=== PATIENT | female | born 1995 ===

== ENCOUNTER 2024-06-15 04:27 | Outpatient (CLI) | payer MEDICAID, SELFPAY ==
[2024-06-15 16:13] LABS: Abs Immature Grans 0.02 10^3/uL (0.0-0.06); Absolute Basophil Count 0.05 10^3/uL (0.0-0.2); Absolute Eosinophil Count 0.12 10^3/uL (0.0-0.7); Absolute Lymphocyte Count 1.36 10^3/uL (1.2-3.4); Absolute Neutrophil Count 5.65 10^3/uL (1.2-6.7); Basophils % 0.7 %; Eosinophils % 1.6 %; HCT 40.2 % (36.0-46.0); HGB 13.5 g/dL (11.2-15.7); Immature Grans % 0.3 %; Lymphocytes % 17.9 %; MCH 29.3 pg (27.0-33.0); MCHC 33.6 % (32.0-36.0); MCV 87 fL (80-95); MPV 9.2 fL (8.0-11.0); Monocytes % 5.3 %; Neutrophils % 74.2 %; Platelet Count 300 10^3/uL (130-400); RBC 4.61 10^6/uL (3.93-5.22); RDW 13.2 % (11.7-14.6); RDW-SD 41.8 fL
[2024-06-15 16:17] LABS: Bilirubin Negative (Negative); Blood Large (Negative); Clarity Clear (Clear); Glucose Negative (Negative); Ketones Negative (Negative); Leukocyte Esterase Negative (Negative); Nitrite Negative (Negative); Urobilinogen 0.2 mg/dL (Up to 0.2); pH 8.5 (5-8)
[2024-06-15 16:23] LABS: Bacteria Negative HPF (Negative); C & S Indicated? No; Casts Negative LPF (Negative); Crystals Negative HPF (Negative); Epithelial Cells Few HPF (Negative); Mucus Negative (Negative); WBC Negative HPF (0-5)
[2024-06-15 16:37] LABS: Hemoglobin A1C 5.4 % (<5.7)
[2024-06-15 16:52] LABS: Iron 93 ug/dL (50-170)
[2024-06-15 17:21] LABS: ALT 18 U/L (14-59); AST 16 U/L (15-37); Albumin 4.1 g/dL (3.4-5.0); Alkaline Phosphatase 67 U/L (46-116); Anion Gap 9.4 mmol/L (3-11); BUN 14 mg/dL (7-18); Bilirubin, Total 0.33 mg/dL (0.2-1.0); CO2 29.6 mmol/L (21.0-32.0); CREATININE 0.8 mg/dL (0.55-1.02); Calcium 9.3 mg/dL (8.5-10.1); Calculated LDL 135 mg/dL (<100); Chloride 103 mmol/L (98-107); Cholesterol 237 mg/dL (<200); Estimated GFR 102.22 (mL/min/1.73m2); Ferritin 106 ng/mL (8-252); Folate 14.2 ng/mL (8.6-20.0); Glucose 93 mg/dL (74-106); HDL Cholesterol 65 mg/dL (40-60); Potassium 3.5 mmol/L (3.5-5.1); Sodium 142 mmol/L (136-145); TSH 1.52 uIU/Ml (0.36-3.74); Total Protein 8.1 g/dL (6.4-8.2); Triglyceride 185 mg/dL (<150); Vitamin B12 416 pg/mL (193-986); Vitamin D 25 Total 33.9 ng/mL (30-100)
[2024-06-15 17:59] LABS: FREE T4 0.93 ng/dL (0.76-1.46)
[2024-06-16 21:06] LABS: T3,Free 3.9 pg/mL (2.8-5.3)
[2024-06-16 22:27] LABS: Progesterone 0.5 ng/mL (See Table)
== END 2024-06-15 04:28 | disposition home or self-care (01) ==
LOC: LBO 04:28
PROVIDERS: Visit Provider Naturopath
DX: R42 Dizziness and giddiness (principal); R53.83 Other fatigue; R21 Rash and other nonspecific skin eruption; R68.83 Chills (without fever); L20.89 Other atopic dermatitis; K59.01 Slow transit constipation; D50.9 Iron deficiency anemia, unspecified; Z13.220 Encounter for screening for lipoid disorders; Z13.1 Encounter for screening for diabetes mellitus; R35.0 Frequency of micturition; E55.9 Vitamin D deficiency, unspecified; N94.3 Premenstrual tension syndrome; R59.0 Localized enlarged lymph nodes; R06.09 Other forms of dyspnea; R20.2 Paresthesia of skin
CPT/HCPCS: 36415; 80053; 80061; 82306; 81003; 81015; 82607; 82728; 82746; 83036; 83540; 84144; 84439; 84443; 84481; 85025

== ENCOUNTER 2024-07-02 02:02 | Outpatient (CLI) | payer MEDICAID, SELFPAY ==
[2024-07-02 22:30] LABS: Estradiol 57 pg/mL (See Note)
[2024-07-02 22:32] LABS: FSH 6.9 mIU/mL (See Note)
[2024-07-03 10:07] LABS: DHEA Sulfate 312 ug/dL (96-512)
[2024-07-05 13:37] LABS: Testosterone, Total 57 ng/dL (8-60)
== END 2024-07-02 02:03 | disposition home or self-care (01) ==
LOC: LBO 02:03
PROVIDERS: Visit Provider Naturopath
DX: R42 Dizziness and giddiness (principal); R53.83 Other fatigue; N94.3 Premenstrual tension syndrome; N91.3 Primary oligomenorrhea
CPT/HCPCS: 36415; 82627; 84403; 82670; 83001

== ENCOUNTER 2024-12-10 15:00 | Outpatient (REF) | payer MEDICAID, SELFPAY ==
--- NOTE | 2024-12-10 10:00 | PAPFT_PTH ---
PATIENT: Mariely Vincent LOC: URI U#:[id number] AGE/SX: 29/F ROOM: RE12/10/[address]: Osmin Cormier : 1995 BED: DIS: 12/10/2024 SPEC #: [id number] RECD: 12/10/24 18:06 STATUS: MIR REQ #: [id number] ANDREINA: 12/10/24 10:[address]: Osmin Cormier DEPT: [facility] Cytology RECD BY: Sarah Cunha ENTERED: 12/10/24 18:07 SP TYPE: PAPFT OTHR DR: Unknown,Unknown Tissues: 1 - CX/ENDOCX FOR PAP SMEARS Procedures: PAP THIN PREP/[facility] Screening HPV DNA PROBE Comments: [id number] (HPV 16 & 18/45) (CHLAMYDIA/GC)
[2024-12-11 11:01] LABS: Chlamydia Result Negative (Negative); GC Result Negative (Negative)
== END 2024-12-10 15:01 | disposition home or self-care (01) ==
LOC: LBN 15:00
PROVIDERS: Visit Provider Naturopath
DX: R87.610 Atypical squamous cells of undetermined significance on cytologic smear of cervix (ASC-US) (principal); Z01.419 Encounter for gynecological examination (general) (routine) without abnormal findings; Z12.4 Encounter for screening for malignant neoplasm of cervix
CPT/HCPCS: 87491; 87591; 88142; 87480; 87510; 87624; 87660